=== PATIENT | female | born 1975 | race Caucasian/White ===

== ENCOUNTER 2020-07-28 07:58 | Outpatient (REF) | payer OTHER, SELFPAY ==
--- NOTE | 2020-07-28 08:03 | MM_ITS ---
EXAMINATION: MM SCREENING DIGITAL BREAST TOMOSYNTHESIS, BILATERAL CLINICAL INFORMATION: Screening. Asymptomatic. The lifetime risk of breast cancer based on the Tyrer-Cuzick Model is 11%. COMPARISON: Mammography: 04/04/2019, 04/03/2018, 09/29/2017, 03/24/2017, 03/03/2017 (baseline), left breast ultrasound 03/10/2017, ultrasound-guided left cyst aspiration 03/24/2017. TECHNIQUE: Digital breast tomosynthesis is performed in both the craniocaudal and mediolateral oblique views along with computer-aided detection (CAD). Synthesized 2D images are generated from the tomosynthesis. FINDINGS: There are scattered areas of fibroglandular density (ACR BI-RADS breast composition Category b). There are no significant masses, abnormal calcifications, or other abnormalities. There is small circumscribed nodule mid medial left breast 4 x 6 mm consistent with the previously aspirated cyst, prior measurement 7 x 9 mm on baseline mammography 2016. The axilla and skin contours are unremarkable. MM/MM tomosynthesis screening BI IMPRESSION: No significant changes from prior studies. Small circumscribed nodule medial left breast 4 x 6 mm consistent with previously imaged cyst. ASSESSMENT: BI-RADS 2: Benign RECOMMENDATION: Routine annual mammography screening. This patient's information was entered into a reminder system with a target due date for their next mammogram.
== END 2020-07-28 07:59 | disposition home or self-care (01) ==
LOC: HO.MAMMO 07:58
PROVIDERS: PCP Internal Medicine; Visit Provider Internal Medicine
DX: Z12.31 Encounter for screening mammogram for malignant neoplasm of breast (principal)
CPT/HCPCS: 77063; 77067

== ENCOUNTER 2020-08-21 09:53 | Outpatient (REF) | payer OTHER, SELFPAY ==
[2020-08-21 11:19] LABS: MANUAL DIFF FLAG NO
[2020-08-21 11:24] LABS: Basophils Percent Auto 0.8 % (0-2); Eosinophils Absolute Auto 0.2 X10*3/uL (0.0-0.4); Eosinophils Percent Auto 3.1 % (0-4); Hematocrit 39.3 % (37-47); Hemoglobin 12.4 g/dl (12.0-16.0); Imm Gran Abs Auto 0.02 X10*3/uL (0.00-0.03); Imm Gran Pct Auto 0.4 % (0.0-0.4); Lymphocytes Absolute Auto 1.7 X10*3/uL (1.2-4.9); Lymphocytes Percent Auto 32.9 % (20-40); Mean Corpuscular HGB Conc 31.6 g/dl (31.0-35.0); Mean Corpuscular Hemoglobin 27.5 pg (27.0-33.0); Mean Corpuscular Volume 87.1 fL (80-98); Mean Platelet Volume 9.9 fL (9.4-12.3); Monocytes Absolute Auto 0.5 X10*3/uL (0.1-1.2); Neutrophils Absolute Auto 2.8 X10*3/uL (2.0-8.3); Neutrophils Percent Auto 53.8 % (45-73); Platelet Count 276 X10*3/uL (160-400); Red Blood Count 4.51 X10*6/uL (4.20-5.50); Red Cell Distribution Width 12.9 % (11.0-16.0); White Blood Count 5.2 X10*3/uL (4.8-10.8)
[2020-08-21 11:55] LABS: Anion Gap 11 (12-20); Blood Urea Nitrogen 14 mg/dL (9-16); Carbon Dioxide 27 mmol/L (22-29); Chloride 106 mmol/L (96-108); Cholesterol 208 mg/dL; Estimated Glomerular Filt Rate > 60; Glucose Fasting 92 mg/dL (60-99); HDL Cholesterol 53 mg/dL; Iron 33 mcg/dL (30-160); LDL Cholesterol Calculated 131 mg/dl; Percent Iron Saturation 8 % (15-50); Potassium 4.8 mmol/l (3.3-5.1); Sodium 139 mmol/L (135-145); Total Iron Binding Capacity 405 mcg/dL (228-428); Triglycerides 122 mg/dL; Unsaturated Iron Binding 372 ug/dL
[2020-08-21 12:17] LABS: Ferritin 6 ng/mL (10-250); TSH reflex Free T4 0.93 mIU/mL (0.32-4.0)
== END 2020-08-21 09:54 | disposition home or self-care (01) ==
LOC: HO.HMGCLDS 09:53
PROVIDERS: PCP Internal Medicine; Visit Provider Internal Medicine
DX: Z00.01 Encounter for general adult medical examination with abnormal findings (principal); I10 Essential (primary) hypertension; K29.70 Gastritis, unspecified, without bleeding; K20.90 Esophagitis, unspecified without bleeding
CPT/HCPCS: 36415; 80048; 80061; 82728; 83540; 84443; 85025

== ENCOUNTER 2021-08-05 09:02 | Outpatient (REF) | payer OTHER, SELFPAY ==
--- NOTE | ~2021-08-05 | MM_ITS ---
EXAMINATION: MM SCREENING DIGITAL BREAST TOMOSYNTHESIS, BILATERAL CLINICAL INFORMATION: Screening. Asymptomatic. The lifetime risk of breast cancer based on the Tyrer-Cuzick Model is 12%. COMPARISON: Mammography: 07/28/2020, 04/04/2019, 04/03/2018 TECHNIQUE: Digital breast tomosynthesis is performed in both the craniocaudal and mediolateral oblique views along with computer-aided detection (CAD). Synthesized 2D images are generated from the tomosynthesis. FINDINGS: There are scattered areas of fibroglandular density (ACR BI-RADS breast composition Category b). There are no significant masses, abnormal calcifications, or other abnormalities. Parenchymal pattern is similar to prior studies. No significant changes. MM/MM tomosynthesis screening BI IMPRESSION: There are no significant changes from prior study. ASSESSMENT: BI-RADS 1: Negative RECOMMENDATION: Routine annual mammography screening. This patient's information was entered into a reminder system with a target due date for their next mammogram.
== END 2021-08-05 09:03 | disposition home or self-care (01) ==
LOC: HO.MAMMO 09:02
PROVIDERS: PCP Internal Medicine; Visit Provider Internal Medicine
DX: Z12.31 Encounter for screening mammogram for malignant neoplasm of breast (principal)
CPT/HCPCS: 77063; 77067

== ENCOUNTER 2021-11-18 08:51 | Outpatient (REF) | payer OTHER, SELFPAY ==
[2021-11-18 11:02] LABS: MANUAL DIFF FLAG NO
[2021-11-18 11:18] LABS: Basophils Percent Auto 0.6 % (0-2); Eosinophils Absolute Auto 0.2 X10*3/uL (0.0-0.4); Eosinophils Percent Auto 3.8 % (0-4); Hematocrit 44.3 % (37.0-47.0); Hemoglobin 14.8 g/dl (12.0-16.0); Imm Gran Abs Auto 0.01 X10*3/uL (0.00-0.03); Imm Gran Pct Auto 0.2 % (0.0-0.4); Lymphocytes Absolute Auto 1.2 X10*3/uL (1.2-4.9); Lymphocytes Percent Auto 22.8 % (20-40); Mean Corpuscular HGB Conc 33.4 g/dl (31.0-35.0); Mean Corpuscular Hemoglobin 31.1 pg (27.0-33.0); Mean Corpuscular Volume 93.1 fL (80.0-98.0); Mean Platelet Volume 10.4 fL (9.4-12.3); Monocytes Absolute Auto 0.5 X10*3/uL (0.1-1.2); Monocytes Percent Auto 9.3 % (2-11); Neutrophils Absolute Auto 3.2 x10*3/uL (2.0-8.3); Neutrophils Percent Auto 63.3 % (45-73); Platelet Count 242 X10*3/uL (160-400); Red Blood Count 4.76 X10*6/uL (4.20-5.50); Red Cell Distribution Width 11.8 % (11.0-16.0)
[2021-11-18 11:37] LABS: Alanine Aminotransferase 24 U/L (0-31); Anion Gap 11 (12-20); Aspartate Amino Transferase 21 U/L (5-31); Blood Urea Nitrogen 18 mg/dL (9-16); Calcium 9.5 mg/dL (8.4-10.2); Carbon Dioxide 28 mmol/L (22-29); Chloride 107 mmol/L (96-108); Cholesterol 218 mg/dL; Estimated Glomerular Filt Rate > 60; Glucose Fasting 95 mg/dL (60-99); HDL Cholesterol 40 mg/dL; LDL Cholesterol Calculated 135 mg/dl; Potassium 4.9 mmol/L (3.3-5.1); Sodium 141 mmol/L (135-145); Triglycerides 217 mg/dL
[2021-11-18 12:00] LABS: Vitamin D 25-OH Total 34.7 ng/mL (>30)
== END 2021-11-18 08:52 | disposition home or self-care (01) ==
LOC: HO.HMGCLDS 08:51
PROVIDERS: PCP Internal Medicine; Visit Provider Internal Medicine
DX: Z00.01 Encounter for general adult medical examination with abnormal findings (principal)
CPT/HCPCS: 36415; 80048; 80061; 82306; 84450; 84460; 85025

== ENCOUNTER 2022-08-18 09:31 | Outpatient (REF) | payer OTHER, SELFPAY ==
--- NOTE | ~2022-08-18 | MM_ITS ---
EXAMINATION: MM SCREENING DIGITAL BREAST TOMOSYNTHESIS, BILATERAL CLINICAL INFORMATION: Screening. Asymptomatic. The lifetime risk of breast cancer based on the Tyrer-Cuzick Model is 11%. COMPARISON: Mammography: 08/05/2021 and studies dating back to 03/03/2017. TECHNIQUE: Digital breast tomosynthesis is performed in both the craniocaudal and mediolateral oblique views along with computer-aided detection (CAD). Synthesized 2D images are generated from the tomosynthesis. FINDINGS: The breasts are heterogeneously dense, which may obscure small masses (ACR BI-RADS breast composition Category c).. There is a stable parenchymal pattern of the right breast with no new abnormal dominant mass or suspicious grouping of microcalcifications. Within the central aspect of the left breast, approximately 4 cm from nipple, there is a well-circumscribed density measuring approximately 9 x 6 mm in size for which spot compression film and probable ultrasound is recommended. MM/MM tomosynthesis screening BI IMPRESSION: Left breast density for further evaluation as described. ASSESSMENT: BI-RADS 0: Incomplete - Need Additional Imaging Evaluation. RECOMMENDATION: 1. Additional views of the left breast. 2. Targeted ultrasound if warranted after review of the additional views. 3. Radiology department staff will contact the patient for additional imaging. This patient's information was entered into a reminder system with a target due date for their next mammogram.
== END 2022-08-18 09:32 | disposition home or self-care (01) ==
LOC: HO.MAMMO 09:31
PROVIDERS: PCP Internal Medicine; Visit Provider Internal Medicine
DX: Z12.31 Encounter for screening mammogram for malignant neoplasm of breast (principal)
CPT/HCPCS: 77063; 77067

== ENCOUNTER 2022-09-07 14:19 | Outpatient (REF) | payer OTHER, SELFPAY ==
--- NOTE | ~2022-09-07 | MM_ITS ---
EXAMINATION: MM DIAGNOSTIC DIGITAL BREAST TOMOSYNTHESIS, LEFT US BREAST TARGETED, LEFT CLINICAL INFORMATION: Circumscribed density left breast. COMPARISON: Mammography: 08/18/2022 and studies dating back to 03/03/2017. TECHNIQUE: Digital breast tomosynthesis is performed. 2D images are generated from the tomosynthesis. The following views are obtained: Spot compression views of the left breast in craniocaudal and mediolateral oblique projections. Targeted left breast ultrasound. FINDINGS: The breasts are heterogeneously dense, which may obscure small masses (ACR BI-RADS breast composition Category c). There is persistence of a circumscribed density approximately 12 o'clock position 4 cm from the nipple. This measures approximately 0.9 x 0.6 x 0.7 cm in size. Targeted left breast ultrasound was then performed which demonstrated a simple cyst with smooth back wall and increased through-sound transmission and no internal vascularity which is wider than it is tall measuring approximately 1.1 x 0.4 x 0.5 cm in size. Results are discussed with the patient at time of visit. MM/MM tomosynthesis added views L IMPRESSION: Left breast density corresponds to a simple cyst. ASSESSMENT: BI-RADS 2: Benign RECOMMENDATION: Routine annual mammography screening. This patient's information was entered into a reminder system with a target due date for their next mammogram.
== END 2022-09-07 14:20 | disposition home or self-care (01) ==
LOC: HO.MAMMO 14:19
PROVIDERS: PCP Internal Medicine; Visit Provider Internal Medicine
DX: R92.2 Inconclusive mammogram (principal)
CPT/HCPCS: 76642; 77061; 77065

== ENCOUNTER 2022-11-21 08:38 | Outpatient (REF) | payer OTHER, SELFPAY ==
[2022-11-21 11:35] LABS: MANUAL DIFF FLAG NO
[2022-11-21 11:58] LABS: Basophils Absolute Auto 0.1 X10*3/uL (0.0-0.2); Basophils Percent Auto 1.1 % (0-2); Eosinophils Absolute Auto 0.2 X10*3/uL (0.0-0.4); Eosinophils Percent Auto 4.3 % (0-4); Hemoglobin 14.1 g/dl (12.0-16.0); Imm Gran Abs Auto 0.01 X10*3/uL (0.00-0.03); Imm Gran Pct Auto 0.2 % (0.0-0.4); Lymphocytes Absolute Auto 1.5 X10*3/uL (1.2-4.9); Lymphocytes Percent Auto 31.2 % (20-40); Mean Corpuscular HGB Conc 33.6 g/dl (31.0-35.0); Mean Corpuscular Hemoglobin 29.3 pg (27.0-33.0); Mean Corpuscular Volume 87.3 fL (80.0-98.0); Mean Platelet Volume 10.4 fL (9.4-12.3); Monocytes Absolute Auto 0.4 X10*3/uL (0.1-1.2); Monocytes Percent Auto 8.8 % (2-11); Neutrophils Absolute Auto 2.5 x10*3/uL (2.0-8.3); Neutrophils Percent Auto 54.4 % (45-73); Platelet Count 264 X10*3/uL (160-400); Red Blood Count 4.81 X10*6/uL (4.20-5.50); Red Cell Distribution Width 13.1 % (11.0-16.0); White Blood Count 4.7 X10*3/uL (4.8-10.8)
[2022-11-21 12:14] LABS: Alanine Aminotransferase 46 U/L (0-31); Anion Gap 11 (12-20); Aspartate Amino Transferase 24 U/L (5-31); Blood Urea Nitrogen 14 mg/dL (9-16); Carbon Dioxide 26 mmol/L (22-29); Chloride 107 mmol/L (96-108); Cholesterol 292 mg/dL; Estimated Glomerular Filt Rate > 60; Glucose Fasting 95 mg/dL (60-99); HDL Cholesterol 31 mg/dL; Potassium 4.8 mmol/L (3.3-5.1); Sodium 139 mmol/L (135-145); Triglycerides 1164 mg/dL
[2022-11-21 12:32] LABS: TSH reflex Free T4 1.32 uIU/mL (0.32-4.0); Vitamin D 25-OH Total 31.4 ng/mL (>30)
== END 2022-11-21 08:39 | disposition home or self-care (01) ==
LOC: HO.HMGCLDS 08:38
PROVIDERS: PCP Internal Medicine; Visit Provider Internal Medicine
DX: Z00.01 Encounter for general adult medical examination with abnormal findings (principal); D12.6 Benign neoplasm of colon, unspecified; E66.9 Obesity, unspecified; K29.70 Gastritis, unspecified, without bleeding
CPT/HCPCS: 36415; 80048; 80061; 82306; 84443; 84450; 84460; 85025

== ENCOUNTER 2023-08-21 10:09 | Outpatient (REF) | payer OTHER, SELFPAY | END 2023-08-21 10:10 | disposition home or self-care (01) | LOC: HO.MAMMO 10:09 | PROVIDERS: PCP Internal Medicine; Visit Provider Internal Medicine | DX: Z12.31 Encounter for screening mammogram for malignant neoplasm of breast (principal) | CPT/HCPCS: 77063; 77067 ==

== ENCOUNTER → 2023-08-21 10:15 | Outpatient (BNV) | payer OTHER, SELFPAY | PROVIDERS: PCP Internal Medicine; Visit Provider Radiology Diagnostic Radiology | DX: Z12.31 Encounter for screening mammogram for malignant neoplasm of breast (principal) | CPT/HCPCS: 77063; 77067 ==

== ENCOUNTER 2023-09-19 13:08 | Outpatient (AMB) | payer OTHER, SELFPAY ==
[2023-09-19 15:56] VITALS: BP 124/72; PULSE 90; TEMP 37.1; O2SAT 99; BMI 32.1
--- NOTE | 2023-09-19 15:56 | AM.OFFWIN_ITS ---
Intake Vital Signs 09/19/23 15:56 Height 5 ft 4 in Weight 187 lb BMI 32.1 BP 124/72 Blood Pressure Location Lt brachial Position Sitting Pulse 90 Pulse Source Pulse Oximeter Temp 98.7 F Temp Source Oral Pulse Oximetry (%) 99 Intake Visit Reasons: Ep, left ear blockage (lobby masked) Patient Tobacco Use Status: Never used Tobacco Allergies amoxicillin Allergy (Unknown, Verified 09/19/23 16:10) rash Medication List - Last Reconciled 09/19/23 by Jeison Vitale MD famotidine 40 mg PO DAILY multivitamin with iron 1 tab PO DAILY valacyclovir 2,000 mg (2 x 1 gram) PO Q12H PRN Do you need a note to return to daycare/school/sports/work: No HPI Ep, left ear blockage (lobby masked) HPI Details 48-year-old female presents to the [facility] for a sick visit. Patient is reporting symptoms of sinus congestion and postnasal drip. Her left ear is blocked. [facility] Medical History (Updated 11/29/22 @ 13:13 by Cece House MD) Hypertriglyceridemia COVID-19 vaccine series declined Recurrent cold sores Obesity (BMI 30.0-34.9) Influenza vaccination declined Tubular adenoma of colon Gastritis Chronic esophagitis Surgical History S/P removal of left ovary History of section Family History Father History of CVA (cerebrovascular accident) Mother Fibromyalgia Cervical cancer Maternal Aunt Diabetes mellitus Brother No problems noted. Daughter No problems noted. Sister No problems noted. Sister No problems noted. Social History Housing: House Alcohol intake: former Patient Tobacco Use Status: Never used Tobacco e-Cigarette/Vaping Use: Never Used service: No Current occupational status: employed Cognitive needs: No Hearing needs: No Vision needs: Yes Physical Exam Vital Signs: Last Vital Signs Temp 98.7 F 09/19/23 15:56 Pulse 90 09/19/23 15:56 BP 124/72 09/19/23 15:56 Pulse Ox 99 01/02/24 15:56 BMI result Body Mass Index 32.1 Const General: cooperative and healthy appearing Nutritional Appearance: well nourished Orientation/consciousness: patient oriented x3 Limitations: no limitations HEENT Other: Bilateral ears: Bulging tympanic membrane. No wax. Head: Yes normal to inspection Eyes General: appearance normal, both eyes and all related structures Neck Neck: Yes normal visual inspection Chest Chest palpation & inspection: normal palpation of entire chest wall Resp Effort & Inspection: normal respiratory effort Neuro General: patient oriented x3 Assessment & Plan Assessment & Plan (1) Upper respiratory tract infection: Code(s): J06.9 - Acute upper respiratory infection, unspecified Plan: Antibiotics ordered. Increase fluid intake. Tylenol for aches and pains. If symptoms worsen, follow-up here for a recheck. Coding Level of Care Code Est Pt Level 3 (62359) Diagnoses Upper respiratory tract infection J06.9
== END 2023-09-19 16:40 | disposition home or self-care (01) ==
PROVIDERS: PCP Internal Medicine; Visit Provider Internal Medicine
DX: J06.9 Acute upper respiratory infection, unspecified (principal)
CPT/HCPCS: 99213

== ENCOUNTER 2023-11-29 07:48 | Outpatient (AMB) | payer OTHER, SELFPAY ==
[2023-11-29 08:05] VITALS: BP 110/84; PULSE 79; O2SAT 99; BMI 31.9
--- NOTE | 2023-11-29 08:05 | MHC.PC.OV ---
Vital Signs 11/29/23 08:05 Height 5 ft 4 in Weight 186 lb BMI 31.9 BP 110/84 Blood Pressure Location Rt brachial Position Sitting Pulse 79 Pulse Source Pulse Oximeter Pulse Oximetry (%) 99 Oxygen Delivery Method Room Air Intake Visit Reasons: PE Intake Note: Pt is here today for her PE Allergies amoxicillin Allergy (Unknown, Verified 11/29/23 08:16) rash Medication List - Last Reconciled 11/29/23 by Cece House MD famotidine 40 mg PO DAILY multivitamin with iron 1 tab PO DAILY valacyclovir 2,000 mg (2 x 1 gram) PO Q12H PRN Tobacco use date assessed: 11/29/23 Dental Screening Dental Screen Date: 11/29/23 Did you have a dental visit in the last 12 months?: Yes Did you have a dental problem in the last 6 months where you did not have access to dental care?: No Was dental information given to patient?: Patient has dentist HPI HPI Comments History of Present Illness Details 48-year-old lady here today for physical exam. She is up-to-date with her cervical cancer screening, goes to [facility], with last Pap done 08/29/2023 with negative findings. She is up-to-date as well with her screening mammogram done August 2023 with benign findings. She is hypertriglyceridemia, as noted on last fasting labs a year ago, patient attributes this to her poor eating habits, has been eating a lot of junk food and processed food, which she has already stopped doing. Has irregular menstrual cycles, and has started having hot flashes. Has been having recurrent cold sores, has 1 now on her left upper lip, requests refills on her valacyclovir tablet PFSH Medical History (Updated 11/29/23 @ 08:37 by Cece House MD) Hypertriglyceridemia COVID-19 vaccine series declined Recurrent cold sores Obesity (BMI 30.0-34.9) Influenza vaccination declined Tubular adenoma of colon Gastritis Chronic esophagitis Surgical History S/P removal of left ovary History of section Family History Father History of CVA (cerebrovascular accident) Mother Fibromyalgia Cervical cancer Maternal Aunt Diabetes mellitus Brother No problems noted. Daughter No problems noted. Sister No problems noted. Sister No problems noted. Social History Housing: House Alcohol intake: former Patient Tobacco Use Status: Never used Tobacco e-Cigarette/Vaping Use: Never Used service: No Current occupational status: employed Cognitive needs: No Hearing needs: No Vision needs: Yes Questionnaire PHQ-9 Over the last 2 weeks, how often have you been bothered by any of the following problems? 1. Little interest or pleasure in doing things: not at all 2. Feeling down, depressed, or hopeless: not at all 3. Trouble falling or staying asleep, or sleeping too much: several days 4. Feeling tired or having little energy: not at all 5. Poor appetite or overeating: not at all 6. Feeling bad about yourself - or that you are a failure or have let yourself or your family down: not at all 7. Trouble concentrating on things, such as reading the newspaper or watching television: not at all 8. Moving or speaking so slowly that other people could have noticed. Or the opposite - being so fidgety or restless that you have been moving around a lot more than usual: not at all 9. Thoughts that you would be better off or of hurting yourself in some way: not at all Total score: 1 Depression Screening Interpretation: Negative Depression Screening Done: Yes 83700 - PHQ-9 Billing: Yes Source: Developed by Drs. Manish Cooper, Meena Jeong, Peter Ramos and colleagues, with an educational tony from [employer]. Thrive Questionnaire Date Thrive assessed: 11/29/23 I am a: Patient What is your living situation today?: I have a steady place to live Within the past 12 months, did the food you bought not last and you didn't have the money to get more?: Never true Within the past 12 months, did you worry whether your food would run out before you got money to buy more?: Never true Do you have trouble paying for medicines?: No Do you have trouble getting transportation to medical appointments?: No Do you have trouble paying your heating and electricity bill?: No Do you have trouble taking care of your child, family member or friend?: No Do you have trouble with day-to-day activities such as bathing, preparing meals, shopping, managing finances, etc.?: No Are you currently unemployed and looking for a job?: No Are you interested in more education?: No THRIVE Score: 0 AUDIT C Alcohol Use Questionnaire (AUDIT-C) 1. How often do you have a drink containing alcohol?: Monthly or less 2. How many drinks containing alcohol do you have on a typical day when you are drinking?: 1 or 2 3. How often do you have six or more drinks on one occasion?: Never Total Score: 1 GUMARO-7 AMB Questionnaire GUMARO-7 Date GUMARO - 7 assessed: 11/29/23 Feeling nervous, anxious, or on edge: 0 = Not at all Not being able to stop or control worryin = Not at all Worrying too much about different things: 0 = Not at all Trouble relaxin = Not at all Being so restless that it is hard to sit still: 0 = Not at all Becoming easily annoyed or irritable: 0 = Not at all Feeling afraid as if something awful might happen: 0 = Not at all Total GUMARO-7 score (0-4 normal; 5-9 mild; 10-14 moderate; 15-21 severe): 0 Source: Developed by Drs. Manish Cooper, Meena Jeong, Peter Ramos and colleagues, with an educational tony from [employer]. GUMARO-7 Assessment Billing GUMARO-7 Assessment Tool: GUMARO-7 Assessment 98623 Review of Systems Const Denies body aches, Denies fatigue, Denies fever(s), Denies headache(s) and Denies weakness Eyes Denies eye discharge and Denies itchy eyes ENT Denies dizziness, Denies headache(s), Denies nasal congestion, Denies nasal discharge and Denies sore throat Card Denies chest pain, Denies lightheadedness, Denies palpitations and Denies dyspnea Resp Denies chest congestion, Denies cough, Denies dyspnea and Denies wheezing GI Denies abdominal pain, Denies change in bowel habits, Reports dyspepsia (occasional when eating tomatoes. ) and Denies heartburn Reports as per HPI, Denies urinary frequency, Denies dysuria and Denies urinary urgency Musc Denies back pain, Denies myalgias, Denies arthralgias and Denies joint swelling Skin/Breast Denies lesions and Denies rash Neuro Denies dizziness, Denies headache(s) and Denies weakness Psych Reports no additional complaints Endo Denies fatigue, Denies polydipsia, Denies polyuria and Denies palpitations Sam/Lymph Denies easy bruising Aller/Immun Denies itchy eyes, Denies seasonal rhinorrhea and Denies wheezing Physical exam (Primary Care) Vital Signs: Last Vital Signs Pulse 79 11/29/23 08:05 BP 110/84 11/29/23 08:05 Pulse Ox 99 11/29/23 08:05 Oxygen Delivery Method Room Air 11/29/23 08:05 BMI result Body Mass Index 31.9 BMI Assessment/Plan discussion: High BMI High, discussed plan: lifestyle, weight reduction, dietary and physical activity Tobacco/Smoking Status: Tobacco use Status Tobacco use date assessed 11/29/23 11/29/23 08:07 Patient Tobacco Use Status Never used Tobacco 11/29/23 08:07 e-Cigarette/Vaping Use Never Used 11/29/23 08:07 PHQ-9: PHQ-9 Score PHQ-9: Total score 1 11/29/23 08:18 Depression Screening Interpretation: Negative Thrive Assessment: Date of Thrive Assessment Date Thrive assessed 11/29/23 11/29/23 08:17 Advance Care Planning discussion: Declined forms Const General: healthy appearing, comfortable, no acute distress, alert and Physically active Nutritional Appearance: obese Orientation/consciousness: patient oriented x3 HENMT Head: Yes normocephalic and Yes atraumatic Ears: hearing grossly normal bilaterally, external ears normal, TM's normal bilaterally and EAC's normal General nose exam: Normal external nose present and No nasal discharge present Face and sinus: Yes normal facial exam and Yes face symmetric Mouth: Normal oral and palatal mucosa present, tongue normal, oropharynx normal and moist mucous membranes Eyes General: appearance normal, both eyes and all related structures Neck Neck: Yes full ROM, Yes no lymphadenopathy, Yes no meningeal signs and Yes supple Thyroid: Thyroid normal Chest Chest palpation & inspection: normal inspection of the chest and normal palpation of entire chest wall Breast/axilla inspection: normal inspection of the breasts Breast/axilla palpation: normal palpation of the breasts and normal palpation of the axillae Resp Effort & Inspection: normal respiratory effort and able to speak in complete sentences Auscultation: clear to auscultation bilaterally Cardio Palpation: normal PMI Rate: regular rate Rhythm: regular rhythm Heart sounds: S1 normal heart sound present and S2 normal heart sound present Peripheral pulses: popliteal pulses present, posterior tibial pulses present and dorsalis pedis present GI Inspection: Yes normal to inspection Palpation (GI): Soft to palpation, nontender, no guarding and no masses Auscultation: normal bowel sounds General: Yes no CVA tenderness and Yes deferred (sees OBBYN at [facility] , has appt 08/2022) Back/Spine/Pelvis Back: no CVA tenderness and No back tenderness Cervical Spine: normal cervical lordosis Thoracic/Lumbar Spine: thoracic and lumbar spine normal to inspection and thoraco-lumbar ROM normal Skin Other: faint simon macules on arms, dry blister on left upper lip, healing shallow abrasion on lateral aspect of left breast with normal surrounding Rashes: no rashes Trauma: no lacerations or abrasions Wounds: no wounds Hair: normal Nails: normal Neuro General: patient oriented x3, gait normal, tone normal, moves all extremities, Normal light touch and pain sensation, no meningeal signs, no focal motor deficits and CN's II-XI intact bilaterally Extrem General: Yes normal to inspection, Yes full ROM, Yes no joint enlargement, Yes no clubbing, cyanosis or edema, Yes no calf tenderness and Yes normal gait Psych Appearance: grossly normal Mental Status: mental status grossly normal Speech and movement: Normal speech and movement present Affect: normal affect Attitude: cooperative Thought process: Normal thought process present Thought content: Normal thought content present Assessment and Plan Assessment & Plan (1) Annual visit for general adult medical examination with abnormal findings: Code(s): Z00.01 - Encounter for general adult medical examination with abnormal findings Plan: Will check appropriate labs. Continue ready dental visit every 6 months and regular eye exams, at least every 2 years. Take adequate calcium in diet and vitamin-D 3 at 2000 IU per cap once a day, in addition to weight-bearing exercises to help maintain good muscle tone and weight control. Instructed to do self-breast exam, and continue with yearly mammogram up-to-date with her screening colonoscopy due again in 2024, declines flu vaccine and COVID vaccination, up-to-date with her Tdap. (2) Hypertriglyceridemia: Code(s): E78.1 - Pure hyperglyceridemia Plan: fasting lipid profile ordered . Reinforced importance of following a low-cholesterol diet and regular exercise, at least 30 minutes 3 to 4 times a week. Advised patient to make healthy food choices, eat more fruits, vegetables, whole grains, wild caught fish and low-fat dairy. Limit amount of meat and fried or fatty food products, as well as processed foods and fast foods. (3) Recurrent cold sores: Code(s): B00.1 - Herpesviral vesicular dermatitis Plan: Prescription refill sent for her valacyclovir tablet, to take 2 g twice a day for 1 day at 1st sign of cold sore (4) Obesity (BMI 30.0-34.9): Code(s): E66.9 - Obesity, unspecified Plan: Recommended focusing on improving your health instead of dieting. : Eat Mediterranean diet, limit foods high in fat, sugar, and calories, eat slowly, pay attention to portion sizes, plan your meals ahead of time, start regular physical activity 150 minutes of moderate intensity exercise or 90 minutes/week of vigorous exercise (5) Tubular adenoma of colon: Comment: Seen on colonoscopy done by Dr. Vides in 2019, repeat colonoscopy in 5 years Code(s): D12.6 - Benign neoplasm of colon, unspecified Plan: Due for repeat colonoscopy screening in 2024 (6) Skin lesion of left arm: Code(s): L98.9 - Disorder of the skin and subcutaneous tissue, unspecified Plan: Dermatology consult ordered Orders: Orders Lipid Panel Today B00.1 - Herpesviral vesicular dermatitis, D12.6 - Benign neoplasm of colon, unspecified, E66.9 - Obesity, unspecified, E78.1 - Pure hyperglyceridemia, Z00.01 - Encounter for general adult medical examination with abnormal findings Glucose Fasting Today B00.1 - Herpesviral vesicular dermatitis, D12.6 - Benign neoplasm of colon, unspecified, E66.9 - Obesity, unspecified, E78.1 - Pure hyperglyceridemia, Z00.01 - Encounter for general adult medical examination with abnormal findings LDL Cholesterol Direct Today B00.1 - Herpesviral vesicular dermatitis, D12.6 - Benign neoplasm of colon, unspecified, E66.9 - Obesity, unspecified, E78.1 - Pure hyperglyceridemia, Z00.01 - Encounter for general adult medical examination with abnormal findings Liver Panel Today B00.1 - Herpesviral vesicular dermatitis, D12.6 - Benign neoplasm of colon, unspecified, E66.9 - Obesity, unspecified, E78.1 - Pure hyperglyceridemia, Z00.01 - Encounter for general adult medical examination with abnormal findings Hemoglobin and Hematocrit Today B00.1 - Herpesviral vesicular dermatitis, D12.6 - Benign neoplasm of colon, unspecified, E66.9 - Obesity, unspecified, E78.1 - Pure hyperglyceridemia, Z00.01 - Encounter for general adult medical examination with abnormal findings Vitamin D 25-OH Total Today B00.1 - Herpesviral vesicular dermatitis, D12.6 - Benign neoplasm of colon, unspecified, E66.9 - Obesity, unspecified, E78.1 - Pure hyperglyceridemia, Z00.01 - Encounter for general adult medical examination with abnormal findings Referrals Dermatology Referral L98.9 - Disorder of the skin and subcutaneous tissue, unspecified, Z12.83 - Encounter for screening for malignant neoplasm of skin Medications: Refilled valacyclovir 2,000 mg (2 x 1 gram) PO Q12H PRN 30 tabs 0RF recurrent cold sore B00.1 - Herpesviral vesicular dermatitis Coding Level of Care Code Est Pt Prev Care 40-64y(71351) Diagnoses Annual visit for general adult medical examination with abnormal findings Z00.01 Hypertriglyceridemia E78.1 Recurrent cold sores B00.1 Obesity (BMI 30.0-34.9) E66.9 Tubular adenoma of colon D12.6 Skin lesion of left arm L98.9 Additional Codes GUMARO-7 Assessment Billing - GUMARO-7 Assessment Tool: GUMARO-7 Assessment 28512 ([id number]) Vital Signs *Quality* - Advance Care Planning discussion: Declined forms ([id number])
== END 2023-11-29 08:35 | disposition home or self-care (01) ==
PROVIDERS: PCP Internal Medicine; Visit Provider Internal Medicine
DX: Z00.00 Encounter for general adult medical examination without abnormal findings (principal); E66.9 Obesity, unspecified; Z68.31 Body mass index [BMI] 31.0-31.9, adult; E78.1 Pure hyperglyceridemia; B00.1 Herpesviral vesicular dermatitis; D12.6 Benign neoplasm of colon, unspecified; L98.9 Disorder of the skin and subcutaneous tissue, unspecified
CPT/HCPCS: 1124F; 99396

== ENCOUNTER 2023-11-29 08:36 | Outpatient (REF) | payer OTHER, SELFPAY ==
[2023-11-29 11:45] LABS: Hematocrit 42.7 % (37.0-47.0); Hemoglobin 14.7 g/dl (12.0-16.0)
[2023-11-29 12:24] LABS: Alanine Aminotransferase 41 U/L (0-31); Albumin Level 4.3 g/dL (3.5-5.0); Alkaline Phosphatase 68 U/L (39-117); Aspartate Amino Transferase 27 U/L (5-31); Bilirubin Direct 0.1 mg/dL (0.0-0.5); Bilirubin Total 0.5 mg/dL (0.0-1.0); Cholesterol 250 mg/dL (<200); Glucose Fasting 93 mg/dL (60-99); HDL Cholesterol 40 mg/dL (>40); LDL Cholesterol Calculated 139 mg/dL (<100); Total Protein 7.3 g/dL (6.5-8.0); Triglycerides 359 mg/dL (<150)
[2023-11-29 12:25] LABS: Vitamin D 25-OH Total 54.2 ng/mL (>30)
[2023-11-30 11:38] LABS: LDL Cholesterol Direct 112 mg/dL (<100)
== END 2023-11-29 08:37 | disposition home or self-care (01) ==
LOC: HO.HMGCLDS 08:36
PROVIDERS: PCP Internal Medicine; Visit Provider Internal Medicine
DX: Z00.01 Encounter for general adult medical examination with abnormal findings (principal); B00.1 Herpesviral vesicular dermatitis; D12.6 Benign neoplasm of colon, unspecified; E78.1 Pure hyperglyceridemia; E66.9 Obesity, unspecified
CPT/HCPCS: 36415; 80061; 80076; 82306; 82947; 83721; 85014; 85018

== ENCOUNTER 2025-04-15 11:56 | Outpatient (AMB) | payer OTHER, SELFPAY ==
[2025-04-15 12:32] VITALS: BP 130/90; PULSE 85; RESP 16; TEMP 36.9; O2SAT 95; BMI 33.5
--- NOTE | 2025-04-15 12:32 | A.OFFPC_ITS ---
Vital Signs 04/15/25 12:32 Height 5 ft 4 in Weight 195 lb BMI 33.5 BP 130/90 H Blood Pressure Location Lt brachial Position Sitting Respiration 16 Pulse 85 Pulse Source Pulse Oximeter Temp 98.5 F Temp Source Oral Pulse Oximetry (%) 95 Oxygen Delivery Method Room Air Intake Visit Reasons: annual pe Intake Note: Pt is here for he annual PE. Last mammo 2023 at [facility] , Colonoscopy 2019 ,[facility] Coordinating Producer Required: No Accompanied by: Self / Same As Patient Allergies amoxicillin Allergy (Unknown, Verified 04/22/25 01:51) rash Medication List - Last Reconciled 04/22/25 by Cece House MD famotidine 40 mg PO DAILY multivitamin with iron 1 tab PO DAILY valacyclovir 2,000 mg (2 x 1 gram) PO Q12H PRN Tobacco use date assessed: 04/15/25 Dental Screening Dental Screen Date: 04/15/25 Did you have a dental visit in the last 12 months?: Yes Did you have a dental problem in the last 6 months where you did not have access to dental care?: No Was dental information given to patient?: Patient has dentist HPI annual pe HPI Details - The patient is a 50-year-old female pr esenting for her physical exam. - The patient continues to receive Pap s kj at [facility], with the last one being two years ago, which showed negative results. She has an upcoming appointment scheduled for later this year with her OBGYN. -: The patient had a mammogram in [facility] 2022 at [facility] and is due for another one. She plans to schedule it soon. - The patient had a colonoscopy in 2019 at [facility], where a polyp was found. She is due for another colonoscopy in 2024, - Hyperlipidemia: The patient's choleste rol levels have fluctuated, with triglycerides peaking at 1164 mg/dL in 2022 and decreasing to 359 mg/dL. Her LDL cholesterol is currently 112 mg/dL, slightly above the target of less than 100 mg/dL. - Plantar fasciitis: The patient experie nces heel pain, particularly in the morning, which is alleviated by wearing supportive shoes and using magnesium. She has been performing foot exercises to manage the condition. - Heartburn: The patient reports occasio nal heartburn, particularly after consuming certain foods. She manages it with famotidine. [facility] Medical History (Updated 04/15/25 @ 13:02 by Cece House MD) History of adenomatous polyp of colon Colon cancer screening Hypertriglyceridemia COVID-19 vaccine series declined Recurrent cold sores Obesity (BMI 30.0-34.9) Influenza vaccination declined Tubular adenoma of colon Gastritis Chronic esophagitis Surgical History S/P removal of left ovary History of section Family History Father History of CVA (cerebrovascular accident) Mother Fibromyalgia Cervical cancer Maternal Aunt Diabetes mellitus Brother No problems noted. Daughter No problems noted. Sister No problems noted. Sister No problems noted. Social History Housing: House Alcohol intake: former Patient Tobacco Use Status: Never used Tobacco e-Cigarette/Vaping Use: Never Used service: No Current occupational status: employed Cognitive needs: No Hearing needs: No Vision needs: Yes Questionnaire PHQ-9 Over the last 2 weeks, how often have you been bothered by any of the following problems? 1. Little interest or pleasure in doing things: not at all 2. Feeling down, depressed, or hopeless: not at all 3. Trouble falling or staying asleep, or sleeping too much: not at all 4. Feeling tired or having little energy: not at all 5. Poor appetite or overeating: not at all 6. Feeling bad about yourself - or that you are a failure or have let yourself or your family down: not at all 7. Trouble concentrating on things, such as reading the newspaper or watching television: not at all 8. Moving or speaking so slowly that other people could have noticed. Or the opposite - being so fidgety or restless that you have been moving around a lot more than usual: not at all 9. Thoughts that you would be better off or of hurting yourself in some way: not at all Total score: 0 Depression Screening Interpretation: Negative Depression Screening Done: Yes 12261 - PHQ-9 Billing: Yes Source: Developed by Drs. Manish Cooper, Peter Alarcon and colleagues, with an educational tony from [employer]. Thrive Questionnaire Date Thrive assessed: 04/08/25 I am a: Patient What is your living situation today?: I have a steady place to live Within the past 12 months, did the food you bought not last and you didn't have the money to get more?: Never true Within the past 12 months, did you worry whether your food would run out before you got money to buy more?: Never true Do you have trouble paying for medicines?: No Do you have trouble getting transportation to medical appointments?: No Do you have trouble paying your heating and electricity bill?: No Do you have trouble taking care of your child, family member or friend?: No Do you have trouble with day-to-day activities such as bathing, preparing meals, shopping, managing finances, etc.?: No Are you currently unemployed and looking for a job?: No Are you interested in more education?: No Please select the resources that you would like help with: None Currently or been in a relationship where the following occur: No concerns reported THRIVE Score: 0 AUDIT C Alcohol Use Questionnaire (AUDIT-C) 1. How often do you have a drink containing alcohol?: Monthly or less 2. How many drinks containing alcohol do you have on a typical day when you are drinking?: 1 or 2 3. How often do you have six or more drinks on one occasion?: Never Total Score: 1 GUMARO-7 AMB Questionnaire GUMARO-7 Date GUMARO - 7 assessed: 04/15/25 Feeling nervous, anxious, or on edge: 0 = Not at all Not being able to stop or control worryin = Not at all Worrying too much about different things: 0 = Not at all Trouble relaxin = Not at all Being so restless that it is hard to sit still: 0 = Not at all Becoming easily annoyed or irritable: 0 = Not at all Feeling afraid as if something awful might happen: 0 = Not at all Total GUMARO-7 score (0-4 normal; 5-9 mild; 10-14 moderate; 15-21 severe): 0 Source: Developed by Drs. Manish Cooper, Peter Alarcon and colleagues, with an educational tony from [employer]. GUMARO-7 Assessment Billing GUMARO-7 Assessment Tool: GUMARO-7 Assessment 88033 Review of Systems Const Denies fatigue, Denies fever(s), Denies headache(s) and Denies weakness Eyes Denies change in vision, Denies eye discharge and Denies itchy eyes ENT Denies dizziness, Denies headache(s), Denies nasal congestion, Denies nasal discharge and Denies sore throat Card Denies chest pain, Denies lightheadedness, Denies palpitations and Denies dyspnea Resp Denies chest congestion, Denies cough, Denies dyspnea and Denies wheezing GI Denies abdominal pain, Denies change in bowel habits, Reports dyspepsia (occasional when eating tomatoes. ) and Denies heartburn Reports as per HPI, Denies urinary frequency, Denies dysuria and Denies urinary urgency Musc Details: Complaining of intermittent bilateral heel pain, now better with massaging magne sium glycinate to heel and wearing footwear with added insoles Denies back pain, Denies myalgias, Denies arthralgias and Denies joint swelling Skin/Breast Denies lesions and Denies rash Neuro Denies dizziness, Denies headache(s) and Denies weakness Psych Reports no additional complaints Endo Denies fatigue, Denies polydipsia, Denies polyuria and Denies palpitations Sam/Lymph Denies easy bruising Aller/Immun Denies itchy eyes, Denies seasonal rhinorrhea and Denies wheezing Physical exam (Primary Care) Vital Signs: Last Vital Signs Temp 98.5 F 04/15/25 12:32 Pulse 85 04/15/25 12:32 Resp 16 04/15/25 12:32 BP 130/90 H 04/15/25 12:32 Pulse Ox 95 04/15/25 12:32 Oxygen Delivery Method Room Air 04/15/25 12:32 BMI result Body Mass Index 33.5 Tobacco/Smoking Status: Tobacco use Status Tobacco use date assessed 04/15/25 04/15/25 12:38 Patient Tobacco Use Status Never used Tobacco 04/15/25 12:38 e-Cigarette/Vaping Use Never Used 04/15/25 12:38 PHQ-9: PHQ-9 Score PHQ-9: Total score 0 04/15/25 12:50 Depression Screening Interpretation: Negative Thrive Assessment: Date of Thrive Assessment Date Thrive assessed 04/08/25 04/15/25 12:38 Currently or been in a relationship where the following occur: No concerns reported Const General: healthy appearing, comfortable, no acute distress, alert and Physically active Nutritional Appearance: obese Orientation/consciousness: patient oriented x3 [facility] Head: Yes normocephalic Ears: hearing grossly normal bilaterally, external ears normal, TM's normal bilaterally and EAC's normal General nose exam: Normal external nose present Face and sinus: Yes normal facial exam and Yes face symmetric Mouth: Normal oral and palatal mucosa present, tongue normal, oropharynx normal and moist mucous membranes Eyes General: appearance normal, both eyes and all related structures Neck Neck: Yes full ROM, Yes no lymphadenopathy, Yes no meningeal signs and Yes supple Thyroid: Thyroid normal Chest Chest palpation & inspection: normal inspection of the chest and normal palpation of entire chest wall Breast/axilla inspection: normal inspection of the breasts Breast/axilla palpation: normal palpation of the breasts and normal palpation of the axillae Resp Effort & Inspection: normal respiratory effort and able to speak in complete sentences Auscultation: clear to auscultation bilaterally Cardio Palpation: normal PMI Rate: regular rate Rhythm: regular rhythm Heart sounds: S1 normal heart sound present and S2 normal heart sound present Peripheral pulses: popliteal pulses present, posterior tibial pulses present and dorsalis pedis present GI Inspection: Yes normal to inspection Palpation (GI): Soft to palpation, nontender, no guarding and no masses Auscultation: normal bowel sounds General: Yes no CVA tenderness and Yes deferred (sees OBN at [facility] , has appt 08/2022) Back/Spine/Pelvis Back: no CVA tenderness and No back tenderness Cervical Spine: normal cervical lordosis Thoracic/Lumbar Spine: thoracic and lumbar spine normal to inspection and thoraco-lumbar ROM normal Skin Other: faint simon macules on arms, dry blister on left upper lip, healing shallow abrasion on lateral aspect of left breast with normal surrounding Rashes: no rashes Trauma: no lacerations or abrasions Wounds: no wounds Hair: normal Nails: normal Neuro General: patient oriented x3, gait normal, tone normal, moves all extremities, Normal light touch and pain sensation, no meningeal signs, no focal motor deficits and CN's II-XI intact bilaterally Extrem General: Yes normal to inspection, Yes full ROM, Yes no joint enlargement, Yes no clubbing, cyanosis or edema, Yes no calf tenderness and Yes normal gait Psych Appearance: grossly normal Mental Status: mental status grossly normal Speech and movement: Normal speech and movement present Affect: normal affect Coding Level of Care Code Est Pt Prev Care 40-64y(86077) Diagnoses Annual visit for general adult medical examination with abnormal findings Z00.01 Colon cancer screening Z12.11 History of adenomatous polyp of colon Z86.0101 Hypertriglyceridemia E78.1 Obesity (BMI 30.0-34.9) E66.9 Additional Codes GUMARO-7 Assessment Billing - GUMARO-7 Assessment Tool: GUMARO-7 Assessment 09280 ([id number]) PHQ-9 - 82097 - PHQ-9 Billing: Yes ([id number]) Assessment & Plan Assessment & Plan (1) Annual visit for general adult medical examination with abnormal findings: Code(s): Z00.01 - Encounter for general adult medical examination with abnormal findings (2) Colon cancer screening: Code(s): Z12.11 - Encounter for screening for malignant neoplasm of colon Category: Medical (3) History of adenomatous polyp of colon: Code(s): Z86.0101 - Personal history of adenomatous and serrated colon polyps Category: Medical (4) Hypertriglyceridemia: Code(s): E78.1 - Pure hyperglyceridemia Category: Medical (5) Obesity (BMI 30.0-34.9): Code(s): E66.9 - Obesity, unspecified Category: Medical Plan The patient will continue with her scheduled preventative screenings, including a Pap smear and mammogram, to ensure early detection of any potential issues. A referral for a colonoscopy will be made to determine if earlier screening is necessary due to the previous finding of an adenomatous polyp. For hyperlipidemia, the patient is advised to maintain dietary modifications that have successfully reduced her triglyceride levels. Continued monitoring of cholesterol levels will be necessary to ensure they remain within target ranges. Management of plantar fasciitis will include the use of supportive footwear and magnesium application, along with foot exercises to alleviate symptoms. The patient is encouraged to continue these interventions to prevent worsening of the condition. Heartburn management will involve the continued use of famotidine as needed, with attention to dietary triggers that may exacerbate symptoms. Patient was informed and verbally consented to the use of an ambient scribe for clinic note documentation during this visit. Orders: Referrals Gastroenterology Referral Z12.11 - Encounter for screening for malignant neoplasm of colon
== END 2025-04-15 13:33 | disposition home or self-care (01) ==
LOC: HO.HMCC 11:57
PROVIDERS: PCP Internal Medicine; Visit Provider Internal Medicine
DX: Z00.01 Encounter for general adult medical examination with abnormal findings (principal); E78.1 Pure hyperglyceridemia; E66.9 Obesity, unspecified; Z68.33 Body mass index [BMI] 33.0-33.9, adult; Z86.0101 Personal history of adenomatous and serrated colon polyps

== ENCOUNTER → 2025-04-15 11:56 | Outpatient (BNVA) | payer OTHER, SELFPAY | PROVIDERS: PCP Internal Medicine; Visit Provider Internal Medicine | DX: Z00.01 Encounter for general adult medical examination with abnormal findings (principal); E78.1 Pure hyperglyceridemia; E66.9 Obesity, unspecified; Z68.33 Body mass index [BMI] 33.0-33.9, adult; Z86.0101 Personal history of adenomatous and serrated colon polyps; Z13.31 Encounter for screening for depression; Z13.39 Encounter for screening examination for other mental health and behavioral disorders | CPT/HCPCS: 96127; 99396 ==

== ENCOUNTER 2025-08-05 15:36 | Outpatient (REF) | payer OTHER, SELFPAY | END 2025-08-05 15:37 | disposition home or self-care (01) | LOC: HO.MAMMO 15:36 | PROVIDERS: PCP Internal Medicine; Visit Provider Internal Medicine | DX: Z12.31 Encounter for screening mammogram for malignant neoplasm of breast (principal) | CPT/HCPCS: 77063; 77067 ==

== ENCOUNTER → 2025-08-05 15:45 | Outpatient (BNV) | payer OTHER, SELFPAY | PROVIDERS: PCP Internal Medicine; Visit Provider Internal Medicine | DX: Z12.31 Encounter for screening mammogram for malignant neoplasm of breast (principal) | CPT/HCPCS: 77063; 77067 ==

== ENCOUNTER 2025-09-05 09:16 | Outpatient (AMB) | payer OTHER, SELFPAY ==
--- NOTE | 2025-09-05 09:21 | MHC.OFFVIS ---
Vital Signs 09/05/25 09:39 Height 5 ft 4 in Weight 185 lb BMI 31.8 Intake Visit Reasons: colo screen, 5 year rpt [place] 2019 Intake Note: New patient in office today for colonoscopy screening. CC: Patient denies having any GI symptoms today. 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 She is referred by Cece House. PMX Obesity ? HSV High cholesterol History of TA GERD * SURGICAL HISTORY Left oophorectomy section Colonoscopy-2019 [place]= TA * ALLERGIES Amoxicillin * [employer] LABS: Needs labs TODAY'S VISIT Prior colonoscopy: [address] Vides Bowel or upper GI problems:Gerd diet controlled, occasional RB in stool when severely constipated, very rare Cardiac or respiratory problems: No Anesthesia or sedation problems: No Infectious disease problems: No PFSH Medical History History of adenomatous polyp of colon Colon cancer screening Pre-op examination Hypertriglyceridemia COVID-19 vaccine series declined Recurrent cold sores Obesity (BMI 30.0-34.9) Influenza vaccination declined Tubular adenoma of colon Gastritis Chronic esophagitis Surgical History S/P removal of left ovary History of section Family History Father History of CVA (cerebrovascular accident) Mother Fibromyalgia Cervical cancer Maternal Aunt Diabetes mellitus Brother No problems noted. Daughter No problems noted. Sister No problems noted. Sister No problems noted. Social History Housing: House Alcohol intake: former Patient Tobacco Use Status: Never used Tobacco e-Cigarette/Vaping Use: Never Used service: No Current occupational status: employed Cognitive needs: No Hearing needs: No Vision needs: Yes Review of Systems Const Denies fatigue, Denies fever(s), Denies night sweats, Denies poor appetite and Denies weight loss ENT Reports Normal hearing present, Denies dental pain, Denies dysphagia, Denies hearing loss, Denies mouth pain, Denies odynophagia, Denies throat swelling, Denies tongue swelling and Reports other (Dentition adequate) Card Reports no additional complaints Resp Reports no additional complaints GI Details: Denies abdominal pain, Denies melena, Denies bloating, Reports hematochezia, Reports constipation, Denies GI cramping, Denies dysphagia, Denies excessive flatus, Denies early satiety, Reports heartburn, Denies diarrhea, Denies nausea, Denies odynophagia, Denies vomiting and Denies hematemesis Skin/Breast Denies pruritus, Denies lesions, Denies rash and Denies jaundice Neuro Reports Normal hearing present and Denies Abnormal speech present Endo Denies fatigue Aller/Immun Denies throat swelling and Denies tongue swelling Physical Exam Vital Signs: BMI result Body Mass Index 31.8 Const General: cooperative, no acute distress, well developed and well groomed Nutritional Appearance: well nourished and obese Orientation/consciousness: oriented to person, oriented to place and oriented to time Limitations: No language barrier HEENT Head: Yes normocephalic and Yes atraumatic Eyes General: appearance normal, both eyes and all related structures Pupils: Equal, round and reactive pupils present Neck Neck: Yes normal visual inspection and Yes no lymphadenopathy Thyroid: Thyroid normal Resp Effort & Inspection: normal respiratory effort and able to speak in complete sentences Auscultation: clear to auscultation bilaterally Cardio Rate: regular rate Rhythm: regular rhythm Heart sounds: Normal, physiologic split S2 sound present Peripheral pulses: radial pulses present and posterior tibial pulses present GI Inspection: No distended, No Abdominal panniculus present and Yes obesity Palpation (GI): Soft to palpation, nontender, no guarding, not rigid and No hepatosplenomegaly present Percussion: Yes normal to percussion Auscultation: normal bowel sounds Rectal Exam - Female: deferred Skin General skin exam: no rashes or lesions noted, turgor normal, skin not dry, no jaundice, No spider nevi and no striae Rashes: no rashes Nails: normal Neuro General: oriented to person, oriented to place and oriented to time Cranial nerves: Yes Equal, round and reactive pupils present and Yes Normal hearing present Speech: No Abnormal speech present Extrem General: Yes normal to inspection, No clubbing, No cyanosis and No edema Psych Appearance: grossly normal and well kempt Mental Status: mental status grossly normal Speech and movement: Normal speech and movement present Affect: normal affect Attitude: cooperative Thought process: Normal thought process present and not confabulating Thought content: Normal thought content present Insight: Good insight present (Psych) Judgement: Good judgement present (Psych) Assessment & Plan Assessment & Plan (1) Tubular adenoma of colon: Comment: Seen on colonoscopy done by Dr. Vides in 2019, repeat colonoscopy in 5 years Code(s): D12.6 - Benign neoplasm of colon, unspecified Category: Medical (2) Pre-op examination: Code(s): Z01.818 - Encounter for other preprocedural examination Category: Medical Plan Prior colonoscopy: [address] Vides Bowel or upper GI problems:Gerd diet controlled, occasional RB in stool when severely constipated, very rare Cardiac or respiratory problems: No Anesthesia or sedation problems: No Infectious disease problems: No Orders: Orders Comprehensive Met. Panel Today D12.6 - Benign neoplasm of colon, unspecified, Z01.818 - Encounter for other preprocedural examination Complete Blood Count Auto Diff Today D12.6 - Benign neoplasm of colon, unspecified, Z01.818 - Encounter for other preprocedural examination Referrals GI Procedure Notification D12.6 - Benign neoplasm of colon, unspecified, Z01.818 - Encounter for other preprocedural examination Medications: New peg 3350-electrolytes 236-22.74-6.74 -5.86 gram (Golytely) until fecal effluent is clear; do not exceed a total volume of 2,000 mL 240 mL PO Q10M 4,000 mL 0RF 1 day Z12.11 - Encounter for screening for malignant neoplasm of colon bisacodyl (Dulcolax (bisacodyl)) 10 mg (2 x 5 mg) PO BEDTIME 4 tabs 0RF 2 days Coding Level of Care Code New Pt Level 3 (01854) Diagnoses Tubular adenoma of colon D12.6 Pre-op examination Z01.818
[2025-09-05 09:39] VITALS: BMI 31.8
== END 2025-09-05 10:08 | disposition home or self-care (01) ==
LOC: HO.HGI 09:16
PROVIDERS: PCP Internal Medicine; Visit Provider Nurse Practitioner
DX: Z01.818 Encounter for other preprocedural examination (principal); Z12.11 Encounter for screening for malignant neoplasm of colon; Z86.0101 Personal history of adenomatous and serrated colon polyps
CPT/HCPCS: 99203

== ENCOUNTER → 2025-09-05 09:16 | Outpatient (BNVA) | payer OTHER, SELFPAY | PROVIDERS: PCP Internal Medicine; Visit Provider Nurse Practitioner | DX: Z12.11 Encounter for screening for malignant neoplasm of colon (principal); D12.6 Benign neoplasm of colon, unspecified; Z01.818 Encounter for other preprocedural examination | CPT/HCPCS: 99202 ==